=== PATIENT | female | born 1995 | race Caucasian/White ===

== ENCOUNTER 2017-09-08 11:30 | Inpatient (IN) | payer OTHER ==
[~2017-09-08] VITALS: Ht 157.5 cm; Wt 71.2 kg
[~2017-09-08 11:30] MED LIST: PHENERGAN25 MG PO; PRENATABS RX T1 EACH; PROTONIX40 MG PO
== END 2017-09-23 11:42 | DRG 775 ==
LOC: LDR 09-21 14:36 → OB/GYN 09-21 22:49
PROC: 0KQM0ZZ Repair Perineum Muscle, Open Approach (ICD-10-PCS; principal; 2017-09-21)
PROC: 10E0XZZ Delivery of Products of Conception, External Approach (ICD-10-PCS; 2017-09-21)
PROC: 4A1HXCZ Monitoring of Products of Conception, Cardiac Rate, External Approach (ICD-10-PCS; 2017-09-21)
PROC: 4A033R1 Measurement of Arterial Saturation, Peripheral, Percutaneous Approach (ICD-10-PCS; 2017-09-21)
DX: O70.1 Second degree perineal laceration during delivery (principal); Z37.0 Single live birth; Z3A.38 38 weeks gestation of pregnancy

== ENCOUNTER 2018-11-22 21:33 | Outpatient (CLI) | payer OTHER ==
[2018-11-22] MEDS ORDERED: FOLIC ACID1 MG PO (21:41)
== END 2018-11-23 10:58 | disposition home or self-care (01) ==
LOC: OBS/DEL 21:33
DX: O23.42 Unspecified infection of urinary tract in pregnancy, second trimester (principal); Z34.82 Encounter for supervision of other normal pregnancy, second trimester; O26.892 Other specified pregnancy related conditions, second trimester; K59.09 Other constipation

== ENCOUNTER 2019-01-20 20:03 | Outpatient (CLI) | payer OTHER ==
[~2019-01-20 20:03] MED LIST changes: +FOLIC ACID1 MG PO
== END 2019-01-21 10:31 | disposition home or self-care (01) ==
LOC: OBS/DEL 20:03
DX: O23.43 Unspecified infection of urinary tract in pregnancy, third trimester (principal); Z34.83 Encounter for supervision of other normal pregnancy, third trimester

== ENCOUNTER 2019-02-02 09:01 | Outpatient (CLI) | payer OTHER | END 2019-02-02 12:46 | disposition home or self-care (01) | LOC: OBS/DEL 09:01 → PRENATAL 09:01 → OBS/DEL 09:03 | DX: O98.813 Other maternal infectious and parasitic diseases complicating pregnancy, third trimester (principal); Z34.83 Encounter for supervision of other normal pregnancy, third trimester; B37.49 Other urogenital candidiasis ==

== ENCOUNTER 2019-02-22 13:30 | Inpatient (IN) | payer OTHER ==
[~2019-02-22] VITALS: Ht 157.5 cm; Wt 66.2 kg
== END 2019-03-15 13:49 | disposition home or self-care (01) | DRG 807 ==
LOC: EDSTATUS 13:30 → ADM 13:30 → LDR 03-13 16:39 → OB/GYN 03-13 16:39
PROVIDERS: ADMIT Obstetrics & Gynecology
PROC: 10E0XZZ Delivery of Products of Conception, External Approach (ICD-10-PCS; principal; 2019-03-13)
PROC: 0KQM0ZZ Repair Perineum Muscle, Open Approach (ICD-10-PCS; 2019-03-13)
PROC: 3E033VJ Introduction of Other Hormone into Peripheral Vein, Percutaneous Approach (ICD-10-PCS; 2019-03-13)
PROC: 4A1HXCZ Monitoring of Products of Conception, Cardiac Rate, External Approach (ICD-10-PCS; 2019-03-13)
DX: O70.1 Second degree perineal laceration during delivery (principal); Z37.0 Single live birth; Z3A.38 38 weeks gestation of pregnancy; Z22.330 Carrier of Group B streptococcus

== ENCOUNTER 2020-10-24 18:15 | Emergency (ER) | payer OTHER ==
[~2020-10-24] VITALS: Ht 157.5 cm; Wt 50.8 kg
== END 2020-10-24 22:38 | disposition home or self-care (01) ==
LOC: ER 18:15
DX: M54.5 Low back pain (principal)

== ENCOUNTER 2021-10-22 22:19 | Emergency (ER) | payer OTHER ==
[~2021-10-22] VITALS: Ht 157.5 cm; Wt 53.5 kg
[2021-10-22] MEDS ORDERED: DICLOFENAC SODI75 MG PO (23:10)
== END 2021-10-23 01:10 | disposition home or self-care (01) ==
LOC: ER 22:19
DX: M54.50 Low back pain, unspecified (principal); Z88.8 Allergy status to other drugs, medicaments and biological substances

== ENCOUNTER 2022-01-09 17:50 | Emergency (ER) | payer OTHER ==
[~2022-01-09] VITALS: Ht 157.5 cm; Wt 53.5 kg
[~2022-01-09 17:50] MED LIST changes: +DICLOFENAC SODI75 MG PO
== END 2022-01-09 22:20 | disposition home or self-care (01) ==
LOC: ER 17:50
DX: R51.9 Headache, unspecified (principal); Z88.6 Allergy status to analgesic agent

== ENCOUNTER 2022-01-27 16:59 | Emergency (ER) | payer OTHER ==
[~2022-01-27] VITALS: Ht 157.5 cm; Wt 53.5 kg
== END 2022-01-27 18:31 | disposition home or self-care (01) ==
LOC: ER 16:59
DX: G56.02 Carpal tunnel syndrome, left upper limb (principal); R20.0 Anesthesia of skin; Z88.8 Allergy status to other drugs, medicaments and biological substances

== ENCOUNTER 2022-08-28 18:00 | Emergency (ER) | payer OTHER ==
[~2022-08-28] VITALS: Ht 157.5 cm; Wt 54.9 kg
== END 2022-08-28 21:20 | disposition home or self-care (01) ==
LOC: ER 18:00
DX: N76.0 Acute vaginitis (principal); R30.0 Dysuria; Z88.8 Allergy status to other drugs, medicaments and biological substances

== ENCOUNTER 2022-10-03 15:12 | Emergency (ER) | payer OTHER ==
[~2022-10-03] VITALS: Ht 160 cm; Wt 54.0 kg
== END 2022-10-03 19:54 | disposition home or self-care (01) ==
LOC: ER 15:12
DX: R53.1 Weakness (principal); Z88.8 Allergy status to other drugs, medicaments and biological substances; Z20.822 Contact with and (suspected) exposure to COVID-19

== ENCOUNTER 2024-05-27 21:11 | Emergency (ER) | payer OTHER ==
[~2024-05-27] VITALS: Ht 167.6 cm; Wt 68.0 kg
[2024-05-27] MEDS ORDERED: CIPRO500 MG PO (22:15)
[2024-05-27] MEDS ORDERED: TRIAMCINOLONE ACETONIDE 40 MG/ML VIAL IM ONE (22:15)
== END 2024-05-27 22:18 | disposition home or self-care (01) ==
LOC: ER 21:13
DX: J32.9 Chronic sinusitis, unspecified (principal); Z88.8 Allergy status to other drugs, medicaments and biological substances